=== PATIENT | male | born 2000 | race Caucasian/White ===

== ENCOUNTER 2020-06-08 11:57 | Emergency (ER) | payer OTHER, SELFPAY ==
[2020-06-08 11:59] VITALS: BP 126/66; PULSE 103; RESP 14; TEMP 36.1; O2SAT 98; BMI 26.9
--- NOTE | 2020-06-08 12:26 | EKG12_ITS ---
Test Reason : CP Blood Pressure : / mmHG Vent. Rate : 095 BPM Atrial Rate : 095 BPM P-R Int : 154 ms QRS Dur : 098 ms QT Int : 330 ms P-R-T Axes : 066 054 032 degrees QTc Int : 414 ms Normal sinus rhythm Normal ECG Confirmed by DELANEY TATE, TAMMI ([id number]), magazine editor REYNA SOFIA ([id number]) on 06/09/2020 9:24:01 AM Referred By: Confirmed By:TAMMI BALTAZAR MD
--- NOTE | 2020-06-08 12:26 | ED.VIS.GEN ---
History of Present Illness Chief Complaint: Chest Pain Informant: Patient Narrative: 20-year-old male states that last night he was at work when he developed a midsternal chest pain. Nonradiating. Nothing seemed to make it better or worse. It lasted about 2 hours and resolved while he was asleep. He states that it was somewhere between dull and sharp. Not feeling thing in the back. No nausea vomiting. No difficulty eating. No symptoms this morning. Past Medical History - Allergies and Home Meds Allergies/Adverse Reactions: Allergies seasonal allergies Allergy (Uncoded 06/08/20 11:58) PT UNSURE OF REACTION Primary Care Physician: Meredith Reeder MD [STAFF PHYSICIAN] - 1 Week (for primary care or follow up with physician of your choice) Past Medical History: None Surgical History: noncontributory Smoking Status: Never smoker Drugs: None Review of Systems General: Denies: Chills, Fever, Sweats Eyes: Denies: Visual changes - bilaterally, Diplopia ENT: Denies: Rhinorrhea, Sore throat Cardiovascular: Reports: Chest pain. Denies: Palpitations Respiratory: Denies: Dyspnea, Cough, Dyspnea on exertion Gastrointestinal: Denies: Abdominal pain, Nausea, Vomiting, Diarrhea, Melena, Hematochezia Genitourinary: Denies: Dysuria, Hematuria, Frequency Musculoskeletal: Denies: Back pain, Extremity Pain Skin: Denies: Rash, Wounds Neurological: Denies: Headache, Weakness, Numbness Physical Exam Vital Signs/Narrative: Vital Signs Temp Pulse Resp BP Pulse Ox 06/08/20 11:59 97 F L 103 H 14 126/66 H 98 Inital Vital Signs reviewed: Yes General: Well nourished, Well developed, No Acute Distress Head: Normocephalic, Atraumatic Eyes: Perrl, EOMI ENT: Moist mucous membranes, No rhinorrhea Neck: Supple, Nontender Cardiovascular: Regular rate, Regular rhythm, No murmurs Respiratory: No distress, CTA bilaterally, Chest nontender Abdomen: Soft, Nontender, Nondistended, Normal bowel sounds Back: Nontender, Normal Inspection Extremities: Nontender, No edema Skin: Normal color, No rash Neurological: Alert, Oriented x3, Cranial nerves II-XII grossly intact, Normal Strength, Normal Sensation Psychological: Normal affect, Normal Mood Diagnostic/Tx/Re-eval Laboratory Last Values WBC 26.0 K/mm3 (4.4-11.0) H 06/08/20 12:58 RBC 4.20 M/mm3 (4.6-6.2) L 06/08/20 12:58 Hgb 13.1 g/dL (13.0-16.5) 06/08/20 12:58 Hct 38.4 % (40-54) L 06/08/20 12:58 MCV 91.4 fL (80-94) 06/08/20 12:58 MCH 31.2 pg (27.0-32.0) 06/08/20 12:58 MCHC 34.1 g/dL (32-36) 06/08/20 12:58 RDW Std Deviation 40.4 fl (35.1-43.9) 06/08/20 12:58 RDW Coeff of Terrance 12.4 % (11.6-14.6) 06/08/20 12:58 Plt Count 215 K/mm3 (150-450) 06/08/20 12:58 MPV 11.0 fl (6.2-12.0) 06/08/20 12:58 Immature Gran % (Auto) 0.600 % (0.0-0.9) 06/08/20 12:58 Neut % (Auto) 93.2 % (47-70) H 06/08/20 12:58 Lymph % (Auto) 2.8 % (19-41) L 06/08/20 12:58 [place] % (Auto) 3.1 % (0-10) 06/08/20 12:58 Eos % (Auto) 0.2 % (0-5) 06/08/20 12:58 Baso % (Auto) 0.1 % (0-1) 06/08/20 12:58 Absolute Neuts (auto) 24.2 X10^3/uL (2.0-7.7) H 06/08/20 12:58 Absolute Lymphs (auto) 0.72 X10^3/uL (0.83-4.51) L 06/08/20 12:58 Nucleated RBC % 0 % (0-5) 06/08/20 12:58 Differential Comment SCANNED 06/08/20 12:58 Sodium 141 mmol/L (136-145) 06/08/20 12:58 Potassium 3.5 mmol/L (3.5-5.1) 06/08/20 12:58 Chloride 108 mmol/L (98-107) H 06/08/20 12:58 Carbon Dioxide 30.0 mmol/L (21.0-32.0) 06/08/20 12:58 Anion Gap 3 (5-15) L 06/08/20 12:58 BUN 9 mg/dL (7-18) 06/08/20 12:58 Creatinine 0.79 mg/dL (0.70-1.30) 06/08/20 12:58 Estim Creat Clear Calc 157.54 ml/min 06/08/20 12:58 Est GFR (MDRD) Af Amer 159 mL/min (>60) 06/08/20 12:58 Est GFR (MDRD) Non-Af 131 mL/min (>60) 06/08/20 12:58 BUN/Creatinine Ratio 11.4 RATIO (10-20) 06/08/20 12:58 Glucose 97 mg/dL (74-106) 06/08/20 12:58 Calcium 9.1 mg/dL (8.5-10.1) 06/08/20 12:58 Troponin I < 0.015 ng/mL (<0.045) 06/08/20 12:58 - EKG Initial EKG Interpretation: Sinus Rhythm - EKG demonstrates a normal sinus rhythm at a rate of 95. There is no ectopy or concerning features of ACS - Medical Decision Making EKG chest x-ray and troponin negative. White blood cell count is elevated at 26. He does not have a fever he does not have infectious symptoms. I do not see any blast on the differential. Recommend that he follow-up with this. He has an appointment he states tomorrow. ED Disposition - Plan for ED Patient: Disposition: Home or Assisted Living Diagnosis: Chest pain Instructions: ED Chest Pain, Uncertain Cause Referrals: Shiva Harkins PA [Primary Care Provider] - Keep Jamey appointment Additional Instructions: Your white blood cell count today was 26. As you are not having any infectious symptoms I think this can be worked up as an outpatient. You will need to discuss this with your doctor.
--- NOTE | 2020-06-08 12:35 | RAD_ITS ---
STUDY: X-RAY CHEST REASON FOR EXAM: Male, 20 years old. CHEST PAIN YESTERDAY- DENIES ANY TODAY TECHNIQUE: Single AP portable view of the chest. COMPARISON: None. FINDINGS: EKG electrodes are seen. The lungs are clear and expanded. There is no demonstrated pleural abnormality. Normal size heart. Normal mediastinum and jeremy. Normal visualized pulmonary arteries. Normal visualized aortic arch and descending thoracic aorta. There is a mild dextroscoliosis of the thoracic spine. Normal visualized ribs, clavicles, and shoulders. There is no demonstrated abnormality of the visualized soft tissue structures of the upper abdomen. RAD/Chest 1 View (Portable) IMPRESSION: No acute abnormality is seen. Electronically Signed: Devyn Quintanilla, at 14:07 EST , Service support ,
[2020-06-08 13:05] VITALS: BP 127/72; PULSE 83; RESP 11; O2SAT 99
[2020-06-08 13:15] LABS: Absolute Lymphocyte Count 0.72 X10^3/uL (0.83-4.51); Absolute Neutrophil Count 24.2 X10^3/uL (2.0-7.7); Basophil# 0.03 X10^3/uL; Basophil% 0.1 % (0-1); Eosinophil# 0.04 X10^3/uL; Eosinophils% 0.2 % (0-5); Hematocrit 38.4 % (40-54); Hemoglobin 13.1 g/dL (13.0-16.5); Lymphocyte # 0.72 X10^3/ul (4.0); Lymphocyte % 2.8 % (19-41); Mean Corp Hgb Conc 34.1 g/dL (32-36); Mean Corpuscular Hgb 31.2 pg (27.0-32.0); Mean Corpuscular Volume 91.4 fL (80-94); Monocyte% 3.1 % (0-10); NRBC Flagged by Analyzer 0 % (0-5); Neutrophil # 24.21 X10^3/uL (2.7-7.7); Neutrophil % 93.2 % (47-70); POSITIVE DIFFERENTIAL YES; Platelet Count 215 K/mm3 (150-450); RBC Distribution Width CV 12.4 % (11.6-14.6); RBC Distribution Width SD 40.4 fl (35.1-43.9)
[2020-06-08 13:16] LABS: Differential Indicated SCAN CRITERIA MET
[2020-06-08 13:31] LABS: Anion Gap 3 (5-15); BUN 9 mg/dL (7-18); BUN/Creat Ratio 11.4 RATIO (10-20); Calcium,Total 9.1 mg/dL (8.5-10.1); Chloride 108 mmol/L (98-107); Creatinine, Serum 0.79 mg/dL (0.70-1.30); EST Glomerular Filtration Rate 131 mL/min (>60); Est Glom Filt Rate - Afr Amer 159 mL/min (>60); Estimated Creatinine Clearance 157.54 ml/min; Glucose 97 mg/dL (74-106); Potassium 3.5 mmol/L (3.5-5.1); Sodium Level 141 mmol/L (136-145)
[2020-06-08 13:35] LABS: Differential Comment SCANNED
[2020-06-08 14:33] VITALS: BP 116/75; PULSE 82; RESP 16; O2SAT 100
--- NOTE | 2020-06-08 14:33 | ED.RN ---
THIS NURSE REVIEWED D/C INSTRUCTIONS WITH PT. PT VERBALIZED UNDERSTANDING OF INSTRUCTIONS. IV D/C. IV CATHETER INTACT. PT TOLERATED WELL. PT DENIES FURTHER NEEDS OR QUESTIONS AT THIS TIME. PT AMBULATES FROM ROOM ON OWN WITHOUT ASSISTANCE FROM STAFF
== END 2020-06-08 14:34 | disposition home or self-care (01) ==
LOC: ED 12:42
PROVIDERS: Emergency Provider Emergency Medicine; PCP Physician Assistant
DX: R07.9 Chest pain, unspecified (principal)
CPT/HCPCS: 71045; 80048; 84484; 85025; 93005; 99283; A4216

== ENCOUNTER 2020-06-15 03:04 | Emergency (ER) | payer OTHER, SELFPAY ==
[2020-06-15 03:05] VITALS: BP 133/76; PULSE 92; RESP 18; TEMP 36.2; O2SAT 95; BMI 27.6
--- NOTE | 2020-06-15 03:11 | EKG12_ITS ---
Test Reason : CP Blood Pressure : / mmHG Vent. Rate : 094 BPM Atrial Rate : 094 BPM P-R Int : 150 ms QRS Dur : 100 ms QT Int : 348 ms P-R-T Axes : 059 056 055 degrees QTc Int : 435 ms Normal sinus rhythm Normal ECG Confirmed by GELY TATE, ALLY ([id number]), editorial project manager REYNA SOFIA ([id number]) on 06/17/2020 12:47:53 PM Referred By: CL Confirmed By:ALLY HONG MD
--- NOTE | 2020-06-15 03:11 | RAD_ITS ---
STUDY: X-RAY CHEST REASON FOR EXAM: Male, 20 years old. Chest pain and shortness of breath which improves with rest. TECHNIQUE: AP portable chest. COMPARISON: June 08, 2020. FINDINGS: The lungs are clear and expanded. There is no demonstrated pleural abnormality. Normal size heart. Normal mediastinum and jeremy. Normal visualized pulmonary arteries. Normal visualized aortic arch and descending thoracic aorta. Normal visualized thoracic spine. Normal visualized ribs, clavicles, and shoulders. There is no demonstrated abnormality of the visualized soft tissue structures of the upper abdomen. RAD/Chest 1 View (Portable) IMPRESSION: Normal x-ray examination of the chest. Electronically Signed: Marek Manjarrez MD at 4:21 EST , Service support ,
--- NOTE | 2020-06-15 03:13 | ED.DCSUM_ITS ---
History of Present Illness Chief Complaint: Chest Pain Informant: Patient Narrative: 20-year-old male with no significant past medical history presents with concern for chest pain. States that the pain is sharp in nature and constant in his chest since noon today. This is now been approximately 15 hours. States that when he is seated as he is now he does not have the pain. States that he was seen here in the emergency department for this last week and had a negative work-up other than elevated white blood cell count. Followed up with his primary care physician but cannot remember the discussion they had for this issue and did not follow-up for his blood work. She denies any history of DVT or pulmonary embolism. Patient denies any drug abuse including cocaine. Patient is not a current smoker. No family history of early cardiac . Past Medical History - Allergies and Home Meds Allergies/Adverse Reactions: Allergies seasonal allergies Allergy (Uncoded 06/15/20 03:07) PT UNSURE OF REACTION Primary Care Physician: Shiva Harkins PA [Primary Care Provider] - Prior records reviewed: Yes Past Medical History: None Surgical History: noncontributory Lives: Alone Smoking Status: Never smoker Alcohol: None Drugs: None Review of Systems General: Denies: Chills, Fever, Sweats Eyes: Denies: Visual changes - bilaterally, Diplopia ENT: Denies: Rhinorrhea, Sore throat Cardiovascular: Reports: Chest pain. Denies: Palpitations Respiratory: Denies: Dyspnea, Cough, Dyspnea on exertion Gastrointestinal: Denies: Abdominal pain, Nausea, Vomiting, Diarrhea, Melena, Hematochezia Genitourinary: Denies: Dysuria, Hematuria, Frequency Musculoskeletal: Denies: Back pain, Extremity Pain Skin: Denies: Rash, Wounds Neurological: Denies: Headache, Weakness, Numbness Physical Exam Vital Signs/Narrative: Vital Signs Temp Pulse Resp BP Pulse Ox 06/15/20 03:05 97.2 F L 92 18 133/76 H 95 Inital Vital Signs reviewed: Yes General: Well nourished, Well developed, No Acute Distress Head: Normocephalic, Atraumatic Eyes: Perrl, EOMI ENT: Moist mucous membranes, No rhinorrhea Neck: Supple, Nontender Cardiovascular: Regular rate, Regular rhythm, No murmurs Respiratory: No distress, CTA bilaterally, Chest nontender Abdomen: Soft, Nontender, Nondistended, Normal bowel sounds Back: Nontender, Normal Inspection Extremities: Nontender, No edema Skin: Normal color, No rash Neurological: Alert, Oriented x3, Cranial nerves II-XII grossly intact, Normal Strength, Normal Sensation Psychological: Normal affect, Normal Mood Diagnostic/Tx/Re-eval Chest X-Ray - ED: 1 View, Read by ED Physician, Read by Radiologist Clinical Impression(s) from Imaging Studies Chest X-Ray 06/15/20 03:11 IMPRESSION: Normal x-ray examination of the chest. Electronically Signed: Marek Manjarrez MD at 4:21 EST , Service support , Chest CTA 06/15/20 04:04 IMPRESSION: Normal CTA chest examination, without a demonstrated pulmonary embolism or arterial dissection. Electronically Signed: Marek Manjarrez MD at 5:40 EST , Service support , Laboratory Data 06/15/20 06/15/20 06/15/20 03:13 03:13 03:13 WBC 15.6 H RBC 4.10 L Hgb 12.9 L Hct 37.1 L MCV 90.5 MCH 31.5 MCHC 34.8 RDW Std Deviation 39.7 RDW Coeff of Terrance 12.2 Plt Count 215 MPV 10.6 Immature Gran % (Auto) 1.200 H Neut % (Auto) 86.6 H Lymph % (Auto) 4.7 L [place] % (Auto) 7.1 Eos % (Auto) 0.1 Baso % (Auto) 0.3 Absolute Neuts (auto) 13.5 H Absolute Lymphs (auto) 0.74 L Nucleated RBC % 0 D-Dimer Quant (PE/DVT) 0.53 H* Sodium 137 Potassium 3.8 Chloride 105 Carbon Dioxide 28.0 Anion Gap 4 L BUN 13 Creatinine 0.72 Estim Creat Clear Calc 172.85 Est GFR (MDRD) Af Amer 175 Est GFR (MDRD) Non-Af 145 BUN/Creatinine Ratio 17.9 Glucose 113 H Calcium 8.9 Total Bilirubin 1.50 H Direct Bilirubin 0.33 H AST 9 L ALT 15 L Alkaline Phosphatase 47 Troponin I < 0.015 Total Protein 7.4 Albumin 4.0 Globulin 3.4 - Rhythm Strip Rhythm Strip: Sinus Rhythm Rate: 94 Ectopy: None - EKG Initial EKG Interpretation: Sinus Rhythm - Sinus rhythm at 94 bpm. MO interval 150 ms. QTC of 435 ms. No evidence of ST elevation or depression at this time. - Medical Decision Making Appears well and nontoxic. Nonischemic EKG. CTA negative after mildly elevated D-dimer. Troponin negative. Given that the patient has had constant chest pain for a long period of time I think this effectively rules him out for ACS. Does have a slightly elevated bilirubin. No abdominal tenderness on 2 exams. Patient's leukocytosis is improving from previous. Patient will be advised to follow-up with his primary care provider and get the lab work that he had suggested. Asked to return for new or worsening symptoms. Patient agreeable and discharged home in stable condition. Impression: 1. Atypical chest pain 2. Leukocytosis ED Disposition - Plan for ED Patient: Disposition: Home or Assisted Living Instructions: ED Chest Pain, Uncertain Cause Referrals: Shiva Harkins PA [Primary Care Provider] - 2 Days
[2020-06-15 03:50] LABS: Absolute Lymphocyte Count 0.74 X10^3/uL (0.83-4.51); Absolute Neutrophil Count 13.5 X10^3/uL (2.0-7.7); Basophil# 0.04 X10^3/uL; Basophil% 0.3 % (0-1); Eosinophil# 0.02 X10^3/uL; Eosinophils% 0.1 % (0-5); Hematocrit 37.1 % (40-54); Hemoglobin 12.9 g/dL (13.0-16.5); Lymphocyte # 0.74 X10^3/ul (4.0); Lymphocyte % 4.7 % (19-41); Mean Corp Hgb Conc 34.8 g/dL (32-36); Mean Corpuscular Hgb 31.5 pg (27.0-32.0); Mean Corpuscular Volume 90.5 fL (80-94); Mean Platelet Vol. 10.6 fl (6.2-12.0); Monocyte# 1.11 X10^3/uL; Monocyte% 7.1 % (0-10); NRBC Flagged by Analyzer 0 % (0-5); Neutrophil # 13.53 X10^3/uL (2.7-7.7); Neutrophil % 86.6 % (47-70); Platelet Count 215 K/mm3 (150-450); RBC Distribution Width CV 12.2 % (11.6-14.6); RBC Distribution Width SD 39.7 fl (35.1-43.9); White Blood Count 15.6 K/mm3 (4.4-11.0)
[2020-06-15 04:04] LABS: D-Dimer Quantitative (DVT/PE) 0.53 FEU/ug/m (0.27-0.49)
--- NOTE | 2020-06-15 04:04 | CT_ITS ---
STUDY: CTA CHEST REASON FOR EXAM: Male, 20 years old. Chest pain for several hours. Elevated d-dimer. Elevated white blood count. RADIATION DOSAGE (If Supplied By Facility): CTDIvol = ( 12.59 ) mGy, DLP = ( 438.36 ) mGycm TECHNIQUE: The examination was performed with the intravenous administration of IV 100mL [id number]-370. Post-processing of the angiographic images was performed, with multiplanar reformation and 3D reconstruction. Individualized dose optimization techniques were used for this CT. COMPARISON: Chest x-ray June 15, 2020. FINDINGS: Normal enhancement of the main pulmonary artery and right and left pulmonary arteries. Normal enhancement of the bilateral peripheral pulmonary arteries. There is no demonstrated pulmonary embolism. Normal thoracic aorta and visualized great vessels. There is no demonstrated aortic dissection. Normal heart and pericardium. Normal mediastinum. Normal hilar regions. Normal visualized trachea and bronchi. The lungs are well expanded. Normal pulmonary parenchyma. Normal pleura. Normal chest wall structures. Normal osseous structures. Normal visualized upper abdomen. CT/CTA Chest W/WO Contrast IMPRESSION: Normal CTA chest examination, without a demonstrated pulmonary embolism or arterial dissection. Electronically Signed: Marek Manjarrez MD at 5:40 EST , Service support ,
[2020-06-15 04:09] LABS: AST(SGOT) 9 U/L (15-37); Alanine Aminotransfer ALT/SGPT 15 U/L (16-61); Alkaline Phosphatase 47 U/L (45-117); Anion Gap 4 (5-15); BUN 13 mg/dL (7-18); BUN/Creat Ratio 17.9 RATIO (10-20); Bilirubin, Direct 0.33 mg/dL (0.00-0.30); Calcium,Total 8.9 mg/dL (8.5-10.1); Chloride 105 mmol/L (98-107); Creatinine, Serum 0.72 mg/dL (0.70-1.30); EST Glomerular Filtration Rate 145 mL/min (>60); Est Glom Filt Rate - Afr Amer 175 mL/min (>60); Estimated Creatinine Clearance 172.85 ml/min; Globulin 3.4 g/dL (2.2-4.2); Glucose 113 mg/dL (74-106); Potassium 3.8 mmol/L (3.5-5.1); Protein, Total 7.4 g/dL (6.4-8.2); Sodium Level 137 mmol/L (136-145)
[2020-06-15 05:49] VITALS: BP 119/67; PULSE 85; RESP 17; O2SAT 100
== END 2020-06-15 06:08 | disposition home or self-care (01) ==
PROVIDERS: Emergency Provider Emergency Medicine; PCP Physician Assistant
DX: R07.89 Other chest pain (principal); D72.829 Elevated white blood cell count, unspecified
CPT/HCPCS: 71045; 71275; 80048; 80076; 84484; 85025; 85379; 93005; 99283; Q9967; A4216